=== PATIENT | female | born 1955 | race Caucasian/White ===

== ENCOUNTER 2018-04-27 13:42 | Outpatient (CLI) | payer BC ==
--- NOTE | 2018-04-27 15:35 | BD ---
BONE DENSITOMETRY: 04/27/18 INDICATIONS: 63-year-old female for postmenopausal osteoporosis screening. Lumbar Spine: BMD (g/cm2) L1 0.903 T-Score: -0.8 L2 0.953 T-Score: -0.7 L3 0.971 T-Score: -1.0 L4 1.013 T-Score: -0.4 L1-L4 0.96 4 T-Score: -0.8 Femoral Neck: 0.682 T-Score: -1.5 Total Femur: 0.848 T-Score: -0.8 Impression: 1. Bone mineral density of the lumbar spine is within normal range. 2. Bone mineral density of the femoral neck indicates osteopenia. Ten year fracture risk: Major osteoporotic fracture: 8.5%. Hip fracture: 0.9%. POS: THERON
== END 2018-04-27 13:43 | disposition home or self-care (01) ==
LOC: BICMAMMO 13:42
PROVIDERS: ATTEND Family Medicine
DX: Z13.820 Encounter for screening for osteoporosis (principal); M85.859 Other specified disorders of bone density and structure, unspecified thigh
CPT/HCPCS: 77063; 77067; 77080

== ENCOUNTER 2019-08-16 08:05 | Outpatient (CLI) | payer MEDICARE, BC ==
--- NOTE | 2019-08-16 09:43 | ULT ---
ULTRASOUND ABDOMEN LIMITED: (RIGHT UPPER QUADRANT) DATE: 08/16/2019 HISTORY: 64-year-old female with right upper quadrant abdominal pain FINDINGS: Gallbladder: A few mobile gallstones, with the largest one measuring at least 16 mm. Small amount of sludge. Normal wall thickness. No evidence of pericholecystic fluid. Liver: Diffusely increased echogenicity, consistent with fatty liver. Common duct caliber:6 mm. Right kidney: No hydronephrosis. Pancreas: Nonspecific sonographic appearance. IMPRESSION: 1) Hepatic steatosis. 2) cholelithiasis.
== END 2019-08-16 08:06 | disposition home or self-care (01) ==
LOC: BICULT 08:05
PROVIDERS: ATTEND Internal Medicine Gastroenterology
DX: K51.20 Ulcerative (chronic) proctitis without complications (principal); R10.11 Right upper quadrant pain; K80.20 Calculus of gallbladder without cholecystitis without obstruction; K76.0 Fatty (change of) liver, not elsewhere classified; Z86.010 Personal history of colon polyps
CPT/HCPCS: 76705

== ENCOUNTER 2019-09-17 06:19 | Outpatient (CLI) | payer MEDICARE, BC ==
[2019-09-17 10:19] LABS: Anion Gap 13 mmol/L (10-20); BUN (Urea Nitrogen) 12 mg/dL (9.8-20.1); Calc. Creatinine Clearance 0 mL/min (70-130); Calcium 9.7 mg/dL (7.8-10.44); Carbon Dioxide 26 mmol/L (23-31); Chloride 107 mmol/L (98-107); Estimated GFR-MDRD 70; Glucose 113 mg/dL (80-115); Sodium 142 mmol/L (136-145)
[2019-09-17 10:26] LABS: #Eosinphils 0.1 thou/uL (0.0-0.7); #Lymphocytes 2.6 thou/uL (1.20-3.40); #Monocytes 0.6 thou/uL (0.11-0.59); #Neutrophils 5.9 thou/uL (1.40-6.50); %Basophils 0.3 % (0.0-1.0); %Eosinophils 1.1 % (0.0-10.0); %Lymphocytes 28.2 % (21.0-51.0); %Monocytes 6.9 % (0.0-10.0); %Neutrophils 63.5 % (42.0-75.0); Hemoglobin 13.7 g/dL (12.0-16.0); Mean Corpuscular Hemoglobin 27.5 pg (27.0-31.0); Mean Corpuscular Volume 85.9 fL (78.0-98.0); Mean Platelet Volume 7.6 fL (7.4-10.4); Platelet Count 275 thou/uL (130-400); White Blood Cell (WBC) Count 9.2 thou/uL (4.8-10.8)
== END 2019-09-17 06:20 | disposition home or self-care (01) ==
LOC: LABBT 06:19
PROVIDERS: ATTEND Specialist
DX: Z01.812 Encounter for preprocedural laboratory examination (principal); K80.20 Calculus of gallbladder without cholecystitis without obstruction
CPT/HCPCS: 80048; 85025; 87045; 87046; 87177; 87427; 87449

== ENCOUNTER 2019-09-18 05:37 | Day surgery (SDC) | payer MEDICARE, BC ==
[2019-09-17 08:54] VITALS: BMI 31.6
[2019-09-18] MEDS ORDERED: Bupivacaine 0.25% HCL 30 ML VIAL ONE (06:36)
[2019-09-18] MEDS ORDERED: Lidocaine 1% w/Epinephrine 1:100K 20 ML VIAL ONE ×2 (06:36→06:43)
[2019-09-18] MEDS ORDERED: Ketorolac Tromethamine 30 MG/ML VIAL ONE (06:43)
[2019-09-18] MEDS ORDERED: Acetaminophen 500 MG TAB ONE (06:43)
[2019-09-18] MEDS ORDERED: Bupivacaine PF 0.5% 30 ML VIAL ONE (06:43)
[2019-09-18] MEDS ORDERED: Levofloxacin 500 mg/D5W 100 ml Premix Bag ONE (06:58)
[2019-09-18] MEDS ORDERED: Fentanyl 100 MCG/2 ML VIAL ONE ×2 (07:05→09:34)
[2019-09-18] MEDS ORDERED: HYDROmorphone 0.5 MG/0.5 ML SYRINGE ONE (07:06)
[2019-09-18] MEDS ORDERED: Promethazine HCl 25 MG/ML VIAL ONE (10:29)
--- NOTE | 2019-09-18 10:38 | OP ---
DATE OF PROCEDURE: 09/18/2019 PREOPERATIVE DIAGNOSIS: Symptomatic cholelithiasis. POSTOPERATIVE DIAGNOSIS: Symptomatic cholelithiasis. PROCEDURE PERFORMED: Laparoscopic cholecystectomy. ANESTHESIA: General endotracheal. INDICATIONS: The patient is a 64-year-old white female. She presents with symptoms referable to gallbladder and ultrasound-proven cholelithiasis. She is taken to the operating room at this time for laparoscopic cholecystectomy. PROCEDURE IN DETAIL: Informed consent was obtained. The patient was taken to the operating room where general endotracheal anesthesia was obtained with the patient in the supine position. The abdomen was prepped with Betadine and draped in the usual sterile fashion. 0.25% Marcaine with epinephrine was infiltrated below the umbilicus and a 10 mm infraumbilical incision was created. A Veress needle was passed through this incision into the peritoneal cavity. A pneumoperitoneum was established using carbon dioxide up to a pressure of 15 mmHg. Local anesthetic was infiltrated and 3 additional 5 mm right upper quadrant incisions were created. Through the mid incision, a 5 mm port was passed into the peritoneal cavity. The camera was passed through this port and under direct vision, an 11 port was passed through the infraumbilical incision. The camera was replaced through this port, and under direct vision, 2 additional 5 mm ports were passed through the incisions already created. The gallbladder was grasped and retracted in a cephalad direction. Minimal adhesions were bluntly stripped away from the apex of the gallbladder, and the apex was retracted laterally and inferiorly. Careful dissection was carried out to the apex of the gallbladder to identify the cystic duct and cystic artery. These were each carefully dissected circumferentially. The duct was of normal caliber. Both the duct and the artery were divided between clips, leaving 2 on the side to remain within the abdomen. The gallbladder was then dissected out of the gallbladder fossa using electrocautery and removed through the infraumbilical port site. The fascia was closed with 0 Vicryl suture and a GraNee needle. The right upper quadrant was inspected and irrigated. All irrigant was aspirated. All ports and instruments were removed under direct vision. Pneumoperitoneum was carefully evacuated. Additional local anesthetic was infiltrated into each port site. The skin edges were approximated with 4-0 Monocryl subcuticular sutures, and Dermabond was placed externally. There were no complications. The patient tolerated the procedure well and was taken to the recovery room in stable condition. FINDINGS: The patient's gallbladder had extensive adhesions to this typical of prior episodes of inflammation. These adhesions were entirely fatty and were taken down using sharp dissection and electrocautery. There was substantial scarring at the apex of the gallbladder as well. This required a careful slow and meticulous dissection to isolate the cystic duct and cystic artery. These, however, were dissected uneventfully without any injury or blood loss. There were numerous gallstones within the gallbladder that had to be removed percutaneously to allow gallbladder extraction. There were no complications. Blood loss was negligible and there was no bile spillage. The patient tolerated the procedure well and was taken to recovery room in stable condition. Job ID: [id number]
[2019-09-18] MEDS ORDERED: Ondansetron PF 4 MG/2 ML Vial ONE (11:16)
[2019-09-18] MEDS ORDERED: Rocuronium Bromide 10 MG/ML (10ML VIAL) ONE (11:16)
[2019-09-18] MEDS ORDERED: PROPOFOL 200 MG/20 ML VIAL ONE ×2 (11:16)
[2019-09-18] MEDS ORDERED: Lidocaine 1% PF 5 ML VIAL ONE (11:16)
[2019-09-18] MEDS ORDERED: Dexamethasone 20 MG/5 ML VIAL ONE (11:16)
[2019-09-18] MEDS ORDERED: Glycopyrrolate 0.2 MG/ML 5 ML SYRINGE ONE (11:16)
--- NOTE | 2019-09-20 08:22 | EKG ---
Test Reason : PREOP Blood Pressure : / mmHG Vent. Rate : 080 BPM Atrial Rate : 080 BPM P-R Int : 192 ms QRS Dur : 090 ms QT Int : 370 ms P-R-T Axes : 054 044 032 degrees QTc Int : 426 ms Sinus rhythm with occasional Premature ventricular complexes Otherwise normal ECG When compared with ECG of 13-MAR-2014 10:51, Premature ventricular complexes are now Present Confirmed by DR. Emerson GALVAN ([id number]) on 09/20/2019 8:21:56 AM Referred By: BECKIE Confirmed By:DR. Emerson GALVAN
== END 2019-09-18 11:35 | disposition home or self-care (01) ==
LOC: SDC 05:37
PROVIDERS: ATTEND Specialist
PROC: 0FT44ZZ Resection of Gallbladder, Percutaneous Endoscopic Approach (ICD-10-PCS; principal; 2019-09-18)
DX: K80.10 Calculus of gallbladder with chronic cholecystitis without obstruction (principal); E11.9 Type 2 diabetes mellitus without complications; E78.5 Hyperlipidemia, unspecified; Z79.84 Long term (current) use of oral hypoglycemic drugs; Z79.899 Other long term (current) drug therapy; Z88.0 Allergy status to penicillin; Z88.5 Allergy status to narcotic agent; Z88.8 Allergy status to other drugs, medicaments and biological substances
CPT/HCPCS: 88304; 93005; 93010; J1100; J1170; J1885; J1956; J2001; J2405; J2550; J2704; J3010; S0020

== ENCOUNTER 2020-03-14 09:45 | Observation (INO) | payer MEDICARE, BC, OTHER ==
[2020-03-14] MEDS ORDERED: Aspirin Chewable 81 MG TAB ONE (10:16)
[2020-03-14] MEDS ORDERED: Nitroglycerin 0.4 MG TAB 1 EACH ONE (10:16)
[2020-03-14 10:19] LABS: #Basophils 0.1 thou/uL (0.0-0.2); #Eosinphils 0.1 thou/uL (0.0-0.7); #Lymphocytes 2.5 thou/uL (1.20-3.40); #Monocytes 0.6 thou/uL (0.11-0.59); #Neutrophils 6.8 thou/uL (1.40-6.50); %Basophils 0.8 % (0.0-1.0); %Eosinophils 1.3 % (0.0-10.0); %Lymphocytes 24.7 % (21.0-51.0); %Monocytes 6.2 % (0.0-10.0); Hemoglobin 14.7 g/dL (12.0-16.0); Mean Corpuscular HGB CONC 33.9 g/dL (32.0-36.0); Mean Corpuscular Hemoglobin 29.2 pg (27.0-31.0); Mean Corpuscular Volume 86.1 fL (78.0-98.0); Mean Platelet Volume 7.6 fL (7.4-10.4); Platelet Count 280 thou/uL (130-400); Red Blood Cell (RBC) Count 5.03 mill/uL (4.20-5.40); White Blood Cell (WBC) Count 10.2 thou/uL (4.8-10.8)
[2020-03-14 10:47] LABS: ALT (SGPT) 46 U/L (8-55); AST (SGOT) 36 U/L (5-34); Albumin 4.4 g/dL (3.4-4.8); Alkaline Phosphatase 130 U/L (40-110); Anion Gap 16 mmol/L (10-20); BUN (Urea Nitrogen) 13 mg/dL (9.8-20.1); Bilirubin, Total 0.9 mg/dL (0.2-1.2); Calc. Creatinine Clearance 0 mL/min (70-130); Calcium 9.8 mg/dL (7.8-10.44); Carbon Dioxide 23 mmol/L (23-31); Chloride 107 mmol/L (98-107); Estimated GFR-MDRD 69; Globulin 3.2 g/dL (2.4-3.5); Glucose 152 mg/dL (80-115); Lipase 58 U/L (8-78); Protein, Total 7.6 g/dL (6.0-8.3); Sodium 142 mmol/L (136-145)
--- NOTE | 2020-03-14 10:51 | RAD ---
CHEST 1 VIEW: Date: 03/14/2020 HISTORY: Epigastric pain, chest pain. FINDINGS: Heart size is within normal limits. The lungs are clear of acute process. No confluent pneumonia, ove rt edema, or pleural effusion. There is a sclerotic-rimmed bone density in the humeral neck measuring 0.9 x 1.7 cm in size. This was not present at the time of a prior x-ray and MRI from 2012 and 2013. A follow-up nonemergent right shoulder CT scan should be considered for further assessment. Heart size is normal. The lungs are clear. No pneumonia, edema, or pleural effusion. IMPRESSION: 1. No significant acute intrathoracic disease. 2. There is a 0.9 x 1.7 cm sclerotic margin defect in the right humeral neck, new from a prior x-ray of 04/03/2013. The etiology is uncertain, but given that this is a new finding, a follow-up noncontr ast CT scan of the right shoulder is recommended for further assessment on a nonemergent basis. Findings were discussed with Litzy Mheta. CODE CR. POS: HARJIT
[2020-03-14] MEDS ORDERED: HumaLOG 300 UNITS/3 ML VIAL SC PRN (13:52)
[2020-03-14] MEDS ORDERED: Nitroglycerin 0.4 MG TAB (25 Tab Bottle) PO PRN (13:52)
[2020-03-14] MEDS ORDERED: Guaifenesin DM 100-10/5 ML UDCUP PO PRN (13:52)
[2020-03-14] MEDS ORDERED: Ondansetron PF 4 MG/2 ML Vial IVP PRN (13:52)
[2020-03-14] MEDS ORDERED: Bisacodyl 10 MG SUPP PR PRN (13:52)
[2020-03-14] MEDS ORDERED: Dextrose 50% Abboject 50 ML SYRINGE SLOW IVP PRN (13:52)
[2020-03-14] MEDS ORDERED: Dextrose 5% in Water 1,000 ML IV PRN (13:52)
[2020-03-14] MEDS ORDERED: Acetaminophen 325 MG TAB PO PRN (13:52)
[2020-03-14] MEDS ORDERED: Senokot S 8.6-50 MG TAB PO PRN (13:52)
[2020-03-14 14:21] LABS: Hemoglobin A1c 5.9 % (4.0-6.0)
--- NOTE | 2020-03-14 14:33 | HP ---
REASON FOR ADMISSION: Chest pain. HISTORY OF PRESENTING ILLNESS: The patient gives history of feeling lethargic and fatigued for almost a week or so now. She has also had prior epigastric pain with radiation to retrosternal area from last 2 to 3 weeks. Last night, the patient had one of these episodes which was severe and was 6/10 in intensity. She had initially thought this was indigestion. Her blood pressure was also elevated with diastolic pressures measuring more than 101. No prior cardiac workup including stress test. No complaints of cough or expectoration. No history of exposure to COVID per patient. No fever at home. No complaints of cough or expectoration. PAST MEDICAL AND SURGICAL HISTORY: History of ulcerative colitis and follows up with Dr. Chin. She has surveillance colonoscopy every 3 years or so now. Hypertension, dyslipidemia, diabetes mellitus type 2, cholecystectomy, right shoulder biceps repair. last mammogram was in 2018 which was normal as far as she knows. CURRENT MEDICATIONS: 1. Takes Crestor 10 mg daily. 2. Vitamin D with calcium 1 tablet daily. 3. Canasa rectal suppository every other day. 4. Trulicity once weekly. ALLERGIES: ALLERGIC TO CODEINE, DIAZEPAM AND PENICILLIN. PERSONAL HISTORY: Does not abuse drugs. She drinks a total of 4 drinks a week, either wine or scotch. Quit smoking 13 years back prior to which has smoked 1 pack a day for nearly 20 years. FAMILY HISTORY: Mother at the age of 60 years. She has had history of lung cancer, was not a smoker. FAMILY HISTORY: Father at the age of 65. He has had history of brain cancer. CODE STATUS: Full. REVIEW OF SYSTEMS: CONSTITUTIONAL: Negative for weight loss or gain, ability to conduct usual activities. SKIN: Negative for rash, itching. EYES: Negative for double vision, pain. ENT/MOUTH: Negative for nose bleeding, neck stiffness, pain, tenderness. CARDIOVASCULAR: Negative for palpitations, dyspnea on exertion, orthopnea. RESPIRATORY: Negative for shortness of breath, wheezing, cough, hemoptysis, fever or night sweats. GASTROINTESTINAL: Negative for poor appetite, abdominal pain, heartburn, nausea, vomiting, constipation, or diarrhea. GENITOURINARY: Negative for urgency, frequency, dysuria, nocturia. MUSCULOSKELETAL: Negative for pain, swelling. NEUROLOGIC/PSYCHIATRIC: Negative for anxiety, depression. ALLERGY/IMMUNOLOGIC: Negative for skin rash, bleeding tendency. MUSCULOSKELETAL: Negative for pain, swelling. NEUROLOGIC/PSYCHIATRIC: Negative for anxiety, depression. ALLERGY/IMMUNOLOGIC: Negative for skin rash, bleeding tendency. PHYSICAL EXAMINATION: GENERAL: The patient is a 65-year-old female who is currently not in any acute distress. VITAL SIGNS: Blood pressure 126/74, pulse 76 per minute, respiratory rate 18 per minute, temperature 98.6 degrees Fahrenheit, saturating 96% on room air. NECK: Supple. No elevated JVD. HEENT: Eyes; extraocular muscles intact. Pupils reacting to light. Oral cavity, mucous membranes are moist. No exudates or congestion. CARDIOVASCULAR: S1, S2 heard. Regular rhythm. RESPIRATORY: Air entry 1+ bilateral. No rales or rhonchi. ABDOMEN: Soft. Bowel sounds heard. No tenderness, rigidity, or guarding. EXTREMITIES: No peripheral edema or calf tenderness. VASCULAR SYSTEM: Peripheral pulses 1+ bilateral. No ischemic ulcerations or gangrene. CENTRAL NERVOUS SYSTEM: No gross focal motor deficits noted. The patient is alert, awake, oriented well. PSYCHIATRIC SYSTEM: The patient's mood is euthymic. No hallucinations or delusions. LABORATORY DATA: EKG done shows normal sinus rhythm at 82 beats per minute. There is Q-wave seen in V2 V3. The overall voltage is low. First set of troponin is negative. Albumin is 4.4 lipase 58. Chest x-ray done shows no acute cardiopulmonary abnormality. There is a sclerotic lesion seen in right humeral neck. Electrolytes are stable. BUN 13, creatinine 0.8. Serum glucose 152, AST 36, ALT 46, alkaline phosphatase 130, total bilirubin 0.9, 67% neutrophils, 24% lymphocytes. Platelet count is 280. H and H 14 and 43, white count of 10, MCV is 86. CLINICAL IMPRESSION AND PATIENT: The patient will be under observation on telemetry for chest pain, rule out acute coronary syndrome. The patient has multiple risk factors for acute coronary syndrome. We will obtain 2 more sets of troponin. She will have a nuclear stress test. The patient weighs nearly 87 kg and might need a 2-day stress test. In which case, she canal or resting portion done today. She will be on full-dose aspirin, Pepcid 20 mg twice daily and continue Canasa or home rectal suppository for ulcerative colitis as before. She will be on Humalog coverage for now. Lipid profile in the morning along with HBA1c level as well. We will obtain COVID screening PCR too. . Job ID: [id number]
[2020-03-14 14:34] LABS: Troponin I Less than 0.010 ng/mL (< 0.028)
[2020-03-14 14:38] VITALS: BMI 32.5
[2020-03-14 17:24] LABS: Troponin I 0.015 ng/mL (< 0.028)
[2020-03-14] MEDS: Famotidine 20 MG TAB PO SCH (20:46)
[2020-03-14] MEDS ORDERED: Mesalamine 1000 MG Suppository PR SCH (21:00)
[2020-03-15 05:23] LABS: #Basophils 0.1 thou/uL (0.0-0.2); #Eosinphils 0.2 thou/uL (0.0-0.7); #Lymphocytes 3.2 thou/uL (1.20-3.40); #Monocytes 0.7 thou/uL (0.11-0.59); #Neutrophils 5.2 thou/uL (1.40-6.50); %Basophils 0.6 % (0.0-1.0); %Eosinophils 1.9 % (0.0-10.0); %Lymphocytes 33.9 % (21.0-51.0); %Monocytes 7.9 % (0.0-10.0); %Neutrophils 55.7 % (42.0-75.0); Hemoglobin 13.6 g/dL (12.0-16.0); Mean Corpuscular HGB CONC 33.2 g/dL (32.0-36.0); Mean Corpuscular Hemoglobin 28.8 pg (27.0-31.0); Mean Corpuscular Volume 86.7 fL (78.0-98.0); Mean Platelet Volume 7.4 fL (7.4-10.4); Platelet Count 255 thou/uL (130-400); RBC Distribution Width 12.1 % (11.5-14.5); Red Blood Cell (RBC) Count 4.73 mill/uL (4.20-5.40); White Blood Cell (WBC) Count 9.3 thou/uL (4.8-10.8)
[2020-03-15 05:49] LABS: Anion Gap 13 mmol/L (10-20); BUN (Urea Nitrogen) 16 mg/dL (9.8-20.1); Calc. Creatinine Clearance 88 mL/min (70-130); Calcium 8.8 mg/dL (7.8-10.44); Carbon Dioxide 24 mmol/L (23-31); Cardiac Risk 2.6 (Less than 4.5); Chloride 108 mmol/L (98-107); Cholesterol 114 mg/dl (< 200 Desired); Estimated GFR-MDRD 65; Glucose 100 mg/dL (80-115); HDL Cholesterol 44 mg/dL (>60 Neg Risk); Potassium 4.2 mmol/L (3.5-5.1); Sodium 141 mmol/L (136-145)
[2020-03-15 08:17] LABS: Triglycerides 132 mg/dL (Less than 150)
[2020-03-15 08:25] LABS: LDL Cholesterol, Calculated 36 mg/dL
[2020-03-15 08:39] VITALS: TEMP 98
[2020-03-15] MEDS ORDERED: Enoxaparin Sodium 40 MG/0.4 ML SYRINGE SC SCH (09:00)
[2020-03-15] MEDS ORDERED: Aspirin 325 mg Enteric Coated Tablet PO SCH (09:00)
[2020-03-15] MEDS ORDERED: ADENOSINE 60 MG/20 ML VIAL ONE (10:19)
[2020-03-15] MEDS: Famotidine 20 MG TAB PO SCH (11:55)
[2020-03-15 12:54] VITALS: BP 130/60
--- NOTE | 2020-03-15 13:17 | NM ---
MYOCARDIAL PERFUSION SCAN: The patient was given 11 mCi of technetium sestamibi for rest imaging and 30 mCi for stress imaging. Patient was stressed according to Adenosine protocol. Left ventricle was imaged with SPECT imaging and attenuation correction images were obtained. INDICATION: Chest pain. FINDINGS: There is normal activity throughout the left ventricle on stress and rest images. Questionable activi ty loss in the apex is stable on stress and rest images with attenuation correction. There is no evid ence of reversible ischemia. Wall motion is normal. Ejection fraction is recorded at over 80%. IMPRESSION: No evidence of reversible ischemia. POS: AGW
--- NOTE | 2020-03-15 14:32 | DIS ---
DATE OF ADMISSION: 03/14/2020 DATE OF DISCHARGE: 03/15/2020 DISCHARGE DISPOSITION: Home. PRIMARY DISCHARGE DIAGNOSIS: Chest pain, which is noncardiac. SECONDARY DISCHARGE DIAGNOSES: History of ulcerative colitis, dyslipidemia, diabetes mellitus type 2. PROCEDURES DONE DURING HOSPITALIZATION: Chest x-ray done showed no acute cardiopulmonary abnormality. There was a 0.9 x 1.7 cm sclerotic margin defect in the right humeral neck, likely from her prior surgery for ruptured biceps tendon by Dr. Hua in the past. Nuclear stress test done showed no reversible ischemia. Ejection fraction was more than 80%. H and H 13 and 41, platelet count 255, MCV 86. Total cholesterol 114, triglycerides 132, LDL 36, HDL 44. Troponin x3 negative. HbA1c 5.9. DISCHARGE MEDICATIONS: The patient is to continue all her home medication as before including; 1. Trulicity once weekly. 2. Mesalamine rectal suppository every 2 days. 3. Vitamin D3 5000 units daily. 4. Calcium with vitamin D 1 capsule twice daily. ALLERGIES: ALLERGIC TO CODEINE, DIAZEPAM, PENICILLIN. DISCHARGE PLAN: The patient to follow up with her primary care physician, Dr. Michaels in 1 week. BRIEF COURSE DURING HOSPITALIZATION: The patient initially came in with complaints of lethargy and fatigue for almost a week and developed retrosternal chest pain. This was coming off and on. In view of this, the patient was placed under observation on telemetry. She has had 3 sets of troponin done, which was negative. A nuclear stress test done showed no reversible ischemia. The patient did not experience any further chest pains during her stay here. She has been advised to follow up with her primary care physician in 1 week. For the sclerotic lesion in her humerus, likely from a prior surgery, she is advised to follow up with her orthopedic surgeon, Dr. Hua in 2 weeks. Please note, I have seen and examined the patient on the day of discharge. Job ID: [id number]
[2020-03-15 15:59] LABS: SARS-CoV-2 MS2 Positive; SARS-CoV-2 N Gene Negative; SARS-CoV-2 S Gene Negative; SARS-CoV-2 by NAA Not Detected (NotDetected); SARS-CoV-2 orf1ab Negative
== END 2020-03-15 15:43 | disposition home or self-care (01) ==
LOC: ERS 09:45 → 2SW 12:15
PROVIDERS: ADMIT Internal Medicine; ATTEND Internal Medicine
DX: R07.89 Other chest pain (principal); E11.9 Type 2 diabetes mellitus without complications; E78.5 Hyperlipidemia, unspecified; K51.90 Ulcerative colitis, unspecified, without complications; Z79.84 Long term (current) use of oral hypoglycemic drugs; Z79.899 Other long term (current) drug therapy; Z88.0 Allergy status to penicillin; Z88.5 Allergy status to narcotic agent; Z88.8 Allergy status to other drugs, medicaments and biological substances; Z87.891 Personal history of nicotine dependence; Z20.828 Contact with and (suspected) exposure to other viral communicable diseases
CPT/HCPCS: 71045; 78452; 80048; 80053; 80061; 82962 ×2; 83036; 83690; 84484 ×2; 85025 ×2; 93005; 93017; 93306; 94760 ×2; A9500; U0003; 36415; 36416; 87635; 96372; G0378; J0153; J1650

== ENCOUNTER 2020-04-28 09:13 | Outpatient (CLI) | payer MEDICARE, BC ==
--- NOTE | 2020-04-28 10:42 | MMO ---
Bilateral MAMMO Bilat Screen [facility]. CLINICAL HISTORY: Patient is 65 years old and is seen for screening. The patient has no family history of breast cancer. The patient has no personal history of cancer. VIEWS: The views performed were: bilateral craniocaudal with tomosynthesis and bilateral mediolateral oblique with tomosynthesis. FILMS COMPARED: The present examination has been compared to a prior imaging study performed at [facility] on 04/27/2018. This study has been interpreted with the assistance of computer-aided detection. MAMMOGRAM FINDINGS: There are scattered fibroglandular densities. There are no suspicious masses, suspicious calcifications, or new areas of architectural distortion. IMPRESSION: THERE IS NO MAMMOGRAPHIC EVIDENCE OF MALIGNANCY. A ROUTINE FOLLOW-UP MAMMOGRAM IN 1 YEAR IS RECOMMENDED. THE RESULTS OF THIS EXAM WERE SENT TO THE PATIENT. ACR BI-RADS Category 1 - Negative MAMMOGRAPHY NOTE: 1. A negative mammogram report should not delay a biopsy if a dominant of clinically suspicious mass is present. 2. Approximately 10% to 15% of breast cancers are not detected by mammography. 3. Adenosis and dense breasts may obscure an underlying neoplasm. Reported by: BRAVO KIRKLAND MD Electonically Signed: [id number]
== END 2020-04-28 09:14 | disposition home or self-care (01) ==
LOC: BICMAMMO 09:13
PROVIDERS: ATTEND Family Medicine
DX: Z12.31 Encounter for screening mammogram for malignant neoplasm of breast (principal)
CPT/HCPCS: 77063; 77067

== ENCOUNTER 2020-12-10 09:57 | Outpatient (CLI) | payer MEDICARE, BC | END 2020-12-10 09:58 | disposition home or self-care (01) | LOC: BICCT 09:57 | PROVIDERS: ATTEND Family Medicine | DX: Z13.820 Encounter for screening for osteoporosis (principal); Z12.2 Encounter for screening for malignant neoplasm of respiratory organs; Z87.891 Personal history of nicotine dependence; R91.8 Other nonspecific abnormal finding of lung field; M85.89 Other specified disorders of bone density and structure, multiple sites | CPT/HCPCS: 71271; 77080 ==

== ENCOUNTER 2021-01-07 08:31 | Outpatient (CLI) | payer MEDICARE, BC | END 2021-01-07 08:32 | disposition home or self-care (01) | LOC: DTY/OP 08:31 | PROVIDERS: ATTEND Family Medicine | DX: E11.9 Type 2 diabetes mellitus without complications (principal); E78.5 Hyperlipidemia, unspecified | CPT/HCPCS: 97802 ==

== ENCOUNTER 2021-12-10 08:47 | Outpatient (CLI) | payer MEDICARE, BC | END 2021-12-10 08:48 | disposition home or self-care (01) | LOC: BICCT 08:47 | PROVIDERS: ATTEND Family Medicine | DX: Z12.2 Encounter for screening for malignant neoplasm of respiratory organs (principal); R91.1 Solitary pulmonary nodule; Z87.891 Personal history of nicotine dependence | CPT/HCPCS: 71271 ==

== ENCOUNTER 2022-05-04 08:43 | Outpatient (CLI) | payer MEDICARE, BC | END 2022-05-04 08:44 | disposition home or self-care (01) | LOC: BICMAMMO 08:43 | PROVIDERS: ATTEND Family Medicine | DX: Z12.31 Encounter for screening mammogram for malignant neoplasm of breast (principal); Z13.820 Encounter for screening for osteoporosis; Z78.0 Asymptomatic menopausal state; M85.89 Other specified disorders of bone density and structure, multiple sites | CPT/HCPCS: 77063; 77067; 77080 ==